=== PATIENT | female | born 1955 | race Caucasian/White ===

== ENCOUNTER 2024-02-04 19:54 | Emergency (ER) | payer MEDICARE ==
[~2024-02-04] VITALS: Ht 160 cm; Wt 80.0 kg
--- OUTSIDE RECORDS SUMMARY | 2024-02-04 19:55 | XMS ---
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 Sonia has no Care Guidelines for this patient. Magalie VISIT COUNT (12 MO.) 2 [facility] TOTAL 2 NOTE: Visits indicate total known visits. ED/UCC VISIT TRACKING (12 MO.) 02/04/2024 19:55 [facility] [place] TYPE: Emergency COMPLAINT: - BLOOD IN URINE 04/14/2023 12:[address] [facility] TYPE: Emergency COMPLAINT: - BACK PAIN DIAGNOSES: - Allergy to milk products - Collapsed vertebra, not elsewhere classified, lumbar region, initial encounter for fracture - Low back pain, unspecified - Other senior care (current) drug therapy - Other specified deforming dorsopathies, lumbar region - Spinal stenosis, lumbar region without neurogenic claudication - Spinal stenosis, thoracic region - Spondylosis without myelopathy or radiculopathy, lumbar region - Spondylosis without myelopathy or radiculopathy, thoracic region INPATIENT VISIT TRACKING (12 MO.) No inpatient visits to display in this time frame [email or web address]
[2024-02-04 20:15] LABS: BILIRUBIN, URINE NEGATIVE (negative); BLOOD/HGB, URINE LARGE (Negative); KETONE, URINE TRACE (Negative); LEUK ESTERASE, URINE SMALL (negative); NITRITE, URINE NEGATIVE (negative); PH, URINE 8.5 (5-7)
[2024-02-04 20:20] LABS: EPITHELIAL CELLS, URINE SQUAMOUS 1+ /lpf (0-1+); RED BLOOD CELLS, URINE >50 /hpf (0-5)
[2024-02-04 20:21] LABS: BACTERIA, URINE 3+ /hpf (negative); CASTS, URINE NONE SEEN \\lpf; COLLECTION TYPE, URINE CLEAN CATCH; CRYSTALS, URINE NONE SEEN (0-1+); REFLEX CULTURE, URINE Yes (No)
[2024-02-04 20:22] LABS: WHITE BLOOD CELLS, URINE >50 /HPF (0-5)
[2024-02-04 20:31] LABS: BASOPHILS 0.4 % (0-2); EOSINOPHILS 0.9 % (0-6); HEMOGLOBIN 14.4 g/dL (12.0-18.0); LYMPHOCYTES 20.8 % (24-44); MCH 31.2 (27-36); MCHC 33.6 g/dl (30-36); MCV 92.9 fl (81-99); MONOCYTES 5.7 % (0-12); NEUTROPHILS 72.2 % (39-80); PLATELET COUNT 145 K/uL (140-440); RBC 4.63 M/ul (4.3-5.7); RDW 14.4 (10.5-15.0)
[2024-02-04 20:46] LABS: INR 1.03 (0.80-1.30); PROTIME 12.8 Sec (11.2-14.2)
[2024-02-04] MEDS ORDERED: CEFDINIR 300 MG HOME.PACK PO ONE (21:00)
[2024-02-04 21:23] VITALS: BP 127/78
== END 2024-02-04 21:24 | disposition home or self-care (01) ==
LOC: ED 19:54
PROVIDERS: Family Medicine
DX: N39.0 Urinary tract infection, site not specified (principal); Z88.8 Allergy status to other drugs, medicaments and biological substances; Z91.011 Allergy to milk products; Z79.899 Other long term (current) drug therapy; Z79.82 Long term (current) use of aspirin
CPT/HCPCS: 36415; 74176; 81001; 85025; 85610; 87088; 99284-25

== ENCOUNTER 2024-04-12 12:17 | Emergency (ER) | payer MEDICARE ==
[~2024-04-12] VITALS: Ht 160 cm; Wt 85.1 kg
[~2024-04-12 12:17] MED LIST: AMOX TR-K CLV1 EAC1 PO; ATORVASTATIN CA20 MG PO; B-121000 MC2 PO; CALCIUM CITRAT1 EAC3 PO; CALQUENCE100 M1 PO; CEFDINIR300 MG PO; LOW DOSE ASPIRI81 MG PO; PERCOCET 5-3251 EACH PO; PERCOCET 7.5-31 EACH PO; PREDNISONE20 MG PO; TRAMADOL HCL50 MG PO
[2024-04-12 12:37] LABS: BASOPHILS 0.9 % (0-2); HEMATOCRIT 43.5 % (35.0-50.0); HEMOGLOBIN 14.6 g/dL (12.0-18.0); LYMPHOCYTES 16.8 % (24-44); MCH 31.6 (27-36); MCHC 33.5 g/dl (30-36); MCV 94.3 fl (81-99); MONOCYTES 8.8 % (0-12); NEUTROPHILS 72.5 % (39-80); PLATELET COUNT 135 K/uL (140-440); RBC 4.61 M/ul (4.3-5.7); RDW 14.6 (10.5-15.0)
[2024-04-12] MEDS ORDERED: ALBUTEROL/IPRATROPIUM 3 ML NEB INH PRN (12:45)
[2024-04-12 12:52] LABS: ALBUMIN 3.7 g/dL (3.4-5.0); ALBUMIN/GLOBULIN RATIO 1.28 (1.1-2.4); BILIRUBIN, TOTAL 0.9 ng/dL (0.2-1.0); BUN/CREATININE RATIO 9.09 (6.0-28.6); CALCIUM 9.1 mg/dL (8.5-10.1); CREATININE, SERUM 1.1 mg/dL (0.55-1.02); MAGNESIUM 2.3 mg/dL (1.8-2.4); PROTEIN, TOTAL 6.6 g/dL (6.4-8.2)
[2024-04-12 13:44] LABS: INFLUENZA B NAA NEGATIVE (NEGATIVE); RESPIRATORY SYNCYTIAL VIR NAA NEGATIVE (NEGATIVE)
[2024-04-12] MEDS ORDERED: PAXLOVID 300-11 EAC1 PO (15:52)
[2024-04-12 16:11] VITALS: BP 132/59
--- NOTE | 2024-04-13 07:48 | EKG ---
[facility] [address] [facility] [facility] [place] [address] Signed Normal sinus rhythm Inferior infarct , age undetermined Cannot rule out Anterior infarct , age undetermined Abnormal ECG When compared with ECG of 03-OCT-2023 11:50, Inferior infarct is now present Confirmed by Marcello Godoy MD ([id number]) on 04/13/2024 7:48:24 AM Electronically Signed By: MARCELLO GODOY MD 04/13/24 0748 PATIENT NAME: VIRGINIA MUNOZ Electrocardiogram DATE OF : 51 PHYSICIAN: MARCELLO GODOY MD REPORT #: [id number] REPORT IS CONFIDENTIAL AND NOT TO BE RELEASED WITHOUT AUTHORIZATION
== END 2024-04-12 16:14 | disposition home or self-care (01) ==
LOC: ED 12:17
PROVIDERS: Emergency Medicine
DX: U07.1 COVID-19 (principal); C91.10 Chronic lymphocytic leukemia of B-cell type not having achieved remission; E78.00 Pure hypercholesterolemia, unspecified; Z85.850 Personal history of malignant neoplasm of thyroid; Z88.8 Allergy status to other drugs, medicaments and biological substances; Z91.018 Allergy to other foods; Z79.82 Long term (current) use of aspirin; Z79.899 Other long term (current) drug therapy
CPT/HCPCS: 36415; 71045; 71260; 80053; 83735; 84484; 85025; 87502; 93005; 93010; 94640; 99285-25; Q9967; U0002

== ENCOUNTER 2025-03-12 03:29 | Emergency (ER) | payer MEDICARE ==
[~2025-03-12] VITALS: Ht 160 cm; Wt 84.1 kg
[~2025-03-12 03:29] MED LIST changes: +PAXLOVID 300-11 EAC1 PO
[2025-03-12] MEDS ORDERED: MORPHINE SULFATE 4 MG/ML VIAL IV ONE (03:45)
[2025-03-12] MEDS ORDERED: SODIUM CHLORIDE 0.9% 1,000 ML IV ONE (03:45)
[2025-03-12 03:55] LABS: BASOPHILS 0.7 % (0.1-1.2); EOSINOPHILS 1.1 % (0.7-5.8); LYMPHOCYTES 26.1 % (19.3-51.7); MCH 31.7 PG (25.6-32.2); MCHC 33.3 g/dL (32.2-35.5); MCV 95.0 fL (79.4-94.8); MONOCYTES 7.5 % (4.7-12.5); NEUTROPHILS 64.2 % (34.0-71.1); RBC 4.64 M/uL (3.93-5.22)
[2025-03-12 04:16] LABS: ALT (SGPT) 34.0 U/L (14-59); AST (SGOT) 19.0 U/L (15-37); GLOMERULAR FILTRATION RATE,EST 60.0 mL/min (>60); PROTEIN, TOTAL 6.8 g/dL (6.4-8.2); UREA NITROGEN 12.0 mg/dL (7-18)
[2025-03-12] MEDS ORDERED: CYCLOBENZAPRINE10 MG PO (04:38)
[2025-03-12] MEDS ORDERED: HYDROCODONE BIT/ACETAMINOPHEN 5/325 MG 1 TAB HOME.PACK PO ONE (04:45)
[2025-03-12 05:19] LABS: BLOOD/HGB, URINE NEGATIVE (Negative); KETONE, URINE NEGATIVE (Negative); LEUK ESTERASE, URINE TRACE (negative); NITRITE, URINE NEGATIVE (negative)
[2025-03-12 05:22] LABS: EPITHELIAL CELLS, URINE SQUAMOUS 1+ /lpf (0-1+)
[2025-03-12 05:23] LABS: BACTERIA, URINE RARE /hpf (negative); CASTS, URINE NONE SEEN \\lpf; CRYSTALS, URINE AMORPHOUS URATES 1+ (0-1+); REFLEX CULTURE, URINE No (No)
[2025-03-12 05:32] VITALS: BP 137/68
== END 2025-03-12 05:36 | disposition home or self-care (01) ==
LOC: ED 03:29
PROVIDERS: Family Medicine
DX: R10.32 Left lower quadrant pain (principal); K76.0 Fatty (change of) liver, not elsewhere classified; R16.0 Hepatomegaly, not elsewhere classified; K57.30 Diverticulosis of large intestine without perforation or abscess without bleeding; E78.00 Pure hypercholesterolemia, unspecified; Z88.8 Allergy status to other drugs, medicaments and biological substances; Z79.82 Long term (current) use of aspirin; Z79.899 Other long term (current) drug therapy
CPT/HCPCS: 36415; 74176; 80053; 81001; 85025; 96374; 96375; 99284-25; A9270; J2270; J2405; J7030

== ENCOUNTER 2025-03-17 05:05 | Emergency (ER) | payer MEDICARE ==
[~2025-03-17] VITALS: Ht 160 cm; Wt 84.0 kg
[~2025-03-17 05:05] MED LIST changes: +CYCLOBENZAPRINE10 MG PO
--- OUTSIDE RECORDS SUMMARY | 2025-03-17 05:11 | XMS ---
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 - 2 Visits in 30 Days [facility]: [phone] Sonia has no Care Guidelines for this patient. Magalie VISIT COUNT (12 MO.) 3 [facility] TOTAL 3 NOTE: Visits indicate total known visits. ED/UCC VISIT TRACKING (12 MO.) 03/17/2025 05:06 [facility] TYPE: Emergency COMPLAINT: - FLANK PAIN 03/12/2025 03:30 [facility] TYPE: Emergency COMPLAINT: - PELVIC PAIN DIAGNOSES: - Allergy status to other drugs, medicaments and biological substances - Diverticulosis of large intestine without perforation or abscess without bleeding - Fatty (change of) liver, not elsewhere classified - Hepatomegaly, not elsewhere classified - Left lower quadrant pain - [facility] (current) use of aspirin - Other [facility] (current) drug therapy - Pure hypercholesterolemia, unspecified 04/12/2024 12:17 [facility] TYPE: Emergency COMPLAINT: - SHORTNESS OF BREATH DIAGNOSES: - Allergy status to other drugs, medicaments and biological substances - Allergy to other foods - Chronic lymphocytic leukemia of B-cell type not having achieved remission - COVID-19 - [facility] (current) use of aspirin - 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
[2025-03-17] MEDS ORDERED: HYDROmorphone HCL 1 MG/ML SYR IV PRN (05:30)
[2025-03-17 05:31] LABS: BLOOD/HGB, URINE SMALL (Negative); KETONE, URINE NEGATIVE (Negative); LEUK ESTERASE, URINE MODERATE (negative); NITRITE, URINE NEGATIVE (negative)
[2025-03-17 05:31] LABS: BASOPHILS 0.4 % (0.1-1.2); EOSINOPHILS 1.0 % (0.7-5.8); LYMPHOCYTES 18.4 % (19.3-51.7); MCH 31.2 PG (25.6-32.2); MCHC 32.8 g/dL (32.2-35.5); MCV 95.1 fL (79.4-94.8); MONOCYTES 5.0 % (4.7-12.5); NEUTROPHILS 74.8 % (34.0-71.1); RBC 4.74 M/uL (3.93-5.22)
[2025-03-17 05:37] LABS: CRYSTALS, URINE NONE SEEN (0-1+)
[2025-03-17 05:38] LABS: BACTERIA, URINE RARE /hpf (negative); CASTS, URINE NONE SEEN \\lpf; REFLEX CULTURE, URINE Yes (No)
[2025-03-17 05:46] LABS: ALT (SGPT) 28.0 U/L (14-59); AST (SGOT) 18.0 U/L (15-37); GLOMERULAR FILTRATION RATE,EST 54.0 mL/min (>60); PROTEIN, TOTAL 7.1 g/dL (6.4-8.2); UREA NITROGEN 14.0 mg/dL (7-18)
[2025-03-17] MEDS ORDERED: FLEET ENEMA133 ML PR (08:54)
[2025-03-17] MEDS ORDERED: CEFDINIR300 MG PO (08:54)
[2025-03-17] MEDS ORDERED: GLYCERIN1 EACH PR (08:54)
[2025-03-17 09:05] VITALS: BP 135/94
== END 2025-03-17 09:06 | disposition home or self-care (01) ==
LOC: ED 05:05
PROVIDERS: Emergency Medicine
DX: N39.0 Urinary tract infection, site not specified (principal); K59.89 Other specified functional intestinal disorders; E78.00 Pure hypercholesterolemia, unspecified; E89.0 Postprocedural hypothyroidism; Z88.8 Allergy status to other drugs, medicaments and biological substances; Z91.018 Allergy to other foods; Z79.82 Long term (current) use of aspirin; Z79.899 Other long term (current) drug therapy
CPT/HCPCS: 36415; 74177; 80053; 81001; 83690; 85025; 87088; 96365; 96375; 99284-25; J0696; J1171; J2405; Q9967